=== PATIENT | female | born 1945 | race Caucasian/White ===

== ENCOUNTER 2022-10-20 00:17 | Emergency (ER) ==
[2022-10-20 01:12] LABS: ABS Basophils 0.1 10^3/ul (0-0.2); ABS Eosinophils 0.3 10^3/ul (0-0.6); ABS Lymphocytes 1.3 10^3/ul (1.0-4.8); ABS Monocytes 0.5 10^3/ul (0-0.8); ABS Neutrophils 8.5 10^3/ul (1.5-7.7); Eosinophil % 2.9 %; Hematocrit 37 % (35-47); Hemoglobin 12.8 g/dL (12.0-16.0); Mean Corpuscular HGB Conc 34 g/dL (31-36); Mean Corpuscular Hemoglobin 31 pg (27-31); Mean Corpuscular Volume 89 fL (80-97); Mean Platelet Volume 7.8 fL (7.4-10.4); Platelet Count 227 10^3/uL (150-450); Red Blood Count 4.19 10^6 /uL (3.70-4.87); Red Cell Distribution Width 14 % (10-15); White Blood Count 10.7 10^3/uL (3.5-10.8)
[2022-10-20 02:39] LABS: ALT 14 U/L (7-52); AST 16 U/L (13-39); Albumin/Globulin Ratio 1.4 (1-3); Alcohol, S < 13 mg/dL (<13); Alkaline Phosphatase 89 U/L (35-149); Anion Gap 12 mmol/L (2-11); Blood Urea Nitrogen 27 mg/dL (6-24); CO2 Carbon Dioxide 20 mmol/L (22-32); Calcium 9.5 mg/dL (8.6-10.3); Chloride 110 mmol/L (101-111); Globulin 2.8 g/dL (2-4); Glucose 100 mg/dL (70-100); Potassium 3.7 mmol/L (3.5-5.0); Sodium 142 mmol/L (135-145); Total Protein 6.8 g/dL (6.4-8.9); eGFR CKD-EPI 36.1 (>60)
[2022-10-20 02:52] LABS: TSH Ultra Thyroid Stim Horm 1.91 mcIU/mL (0.34-5.60)
[2022-10-20 04:14] LABS: Urine Appearance Clear; Urine Bilirubin Negative (Negative); Urine Blood Negative (Negative); Urine Color Yellow; Urine Glucose Negative (Negative); Urine Ketones Negative (Negative); Urine Nitrite Negative (Negative); Urine Protein Negative (Negative); Urine Specific Gravity 1.019 (1.002-1.030); Urine Urobilinogen Negative (Negative)
[2022-10-20] MEDS: Potassium Chlor 20 meq TAB.ER PO SCH (18:12)
[2022-10-21] MEDS: Potassium Chlor 20 meq TAB.ER PO SCH (10:10)
[2022-10-22] MEDS: Potassium Chlor 20 meq TAB.ER PO SCH (11:06)
[2022-10-22] MEDS ORDERED: Magnesium Hydroxide LIQ 30 ML UDC PO PRN (15:54)
[2022-10-22] MEDS: Enoxaparin 40 MG/0.4 ML SYR SUBCUT SCH (16:37)
[2022-10-23] MEDS: Nystatin TOP POWDER 15 GM BTL TOPICAL SCH ×3 (00:24→20:34)
[2022-10-23] MEDS ORDERED: Magnesium Hydroxide LIQ 30 ML UDC PO PRN (00:40)
[2022-10-23] MEDS ORDERED: Polyethylene Glycol 3350 17 GM PACKET PO PRN (09:00)
[2022-10-23] MEDS ORDERED: Influenza vaccine *QUAD* *2022-23* 0.5 ML SYRINGE IM ONE (09:00)
[2022-10-23] MEDS: Potassium Chlor 20 meq TAB.ER PO SCH (09:24)
[2022-10-23] MEDS: Magnesium Hydroxide LIQ 30 ML UDC PO SCH ×2 (09:29→20:34)
[2022-10-23] MEDS: Enoxaparin 40 MG/0.4 ML SYR SUBCUT SCH (15:54)
[2022-10-23] MEDS ORDERED: Senna TAB 8.6 mg TAB PO PRN (21:00)
[2022-10-24] MEDS: Potassium Chlor 20 meq TAB.ER PO SCH (08:28)
[2022-10-24] MEDS: Magnesium Hydroxide LIQ 30 ML UDC PO SCH ×2 (08:30→20:57)
[2022-10-24] MEDS: Nystatin TOP POWDER 15 GM BTL TOPICAL SCH ×2 (09:48→20:57)
[2022-10-24] MEDS: Enoxaparin 40 MG/0.4 ML SYR SUBCUT SCH (16:03)
[2022-10-25] MEDS: Nystatin TOP POWDER 15 GM BTL TOPICAL SCH ×2 (09:39→19:02)
[2022-10-25] MEDS: Potassium Chlor 20 meq TAB.ER PO SCH (09:40)
[2022-10-25] MEDS: Magnesium Hydroxide LIQ 30 ML UDC PO SCH (09:59)
[2022-10-25] MEDS: Enoxaparin 40 MG/0.4 ML SYR SUBCUT SCH (16:43)
[2022-10-26] MEDS: Potassium Chlor 20 meq TAB.ER PO SCH (09:38)
[2022-10-26] MEDS: Nystatin TOP POWDER 15 GM BTL TOPICAL SCH ×2 (09:39→19:28)
[2022-10-26] MEDS: Enoxaparin 40 MG/0.4 ML SYR SUBCUT SCH (16:32)
[2022-10-27] MEDS: Nystatin TOP POWDER 15 GM BTL TOPICAL SCH ×2 (09:15→20:22)
[2022-10-27] MEDS: Potassium Chlor 20 meq TAB.ER PO SCH (09:17)
[2022-10-27] MEDS: Enoxaparin 40 MG/0.4 ML SYR SUBCUT SCH (16:37)
[2022-10-28] MEDS: Nystatin TOP POWDER 15 GM BTL TOPICAL SCH ×2 (09:07→21:18)
[2022-10-28] MEDS: Potassium Chlor 20 meq TAB.ER PO SCH (09:09)
[2022-10-28] MEDS: Enoxaparin 40 MG/0.4 ML SYR SUBCUT SCH (17:09)
[2022-10-29] MEDS: Potassium Chlor 20 meq TAB.ER PO SCH (09:41)
[2022-10-29] MEDS: Nystatin TOP POWDER 15 GM BTL TOPICAL SCH ×2 (09:41→21:42)
[2022-10-29] MEDS: Enoxaparin 40 MG/0.4 ML SYR SUBCUT SCH (16:18)
[2022-10-30] MEDS: Nystatin TOP POWDER 15 GM BTL TOPICAL SCH ×2 (09:23→20:29)
[2022-10-30] MEDS: Enoxaparin 40 MG/0.4 ML SYR SUBCUT SCH (16:06)
[2022-10-31] MEDS: Nystatin TOP POWDER 15 GM BTL TOPICAL SCH (09:04)
[2022-10-31 11:13] VITALS: BP 104/63
== END 2022-10-31 13:45 | DRG 948 ==
LOC: ED 00:17 → SUATTDRO 10-22 15:54 → EDHOLD 10-22 15:54 → MED 10-22 19:04
PROVIDERS: ATTEND Internal Medicine

== ENCOUNTER 2022-10-22 15:54 | Inpatient (IN) ==
[2022-10-27 20:43] LABS: Urine Appearance Cloudy; Urine Bilirubin Negative (Negative); Urine Blood Negative (Negative); Urine Color Amber; Urine Glucose Negative (Negative); Urine Ketones Negative (Negative); Urine Nitrite Negative (Negative); Urine Protein Negative (Negative); Urine Specific Gravity 1.021 (1.002-1.030); Urine Urobilinogen Negative (Negative)
[2022-10-30 14:58] LABS: Calcium 9.9 mg/dL (8.6-10.3); Creatinine, Serum 1.29 mg/dL (0.51-0.95); Magnesium 2.3 mg/dL (1.9-2.7); Potassium 4.1 mmol/L (3.5-5.0); eGFR CKD-EPI 43.3 (>60)
[2022-10-30 15:17] LABS: Ferritin 64.9 ng/mL (11-307)
[2022-10-31 10:42] LABS: Rapid COVID-19 Molecular Undetected (Undetected)
== END 2022-10-31 12:13 | DRG 948 ==
LOC: MED 15:54
PROVIDERS: ADMIT Internal Medicine; ATTEND Internal Medicine